=== PATIENT | male | born 1945 | race Caucasian/White ===

== ENCOUNTER 2018-12-17 12:17 | Emergency (ER) | payer MEDICARE, OTHER ==
[~2018-12-17] VITALS: Ht 180.3 cm; Wt 121.6 kg
--- OUTSIDE RECORDS SUMMARY | 2018-12-17 12:19 | XMS REPORT ---
Author Author [facility] Address Unknown Phone Unavailable Care Team Providers Care Web Press Operator Name Role Phone Nick LEVI Unavailable Unavailable Problems This patient has no known problems. Allergies, Adverse Reactions, Alerts This patient has no known allergies or adverse reactions. Medications This patient has no known medications. Results Test Description Test Time Test Comments Text Results Atomic Results Result Comments ANKLE 3+ VIEWS LEFT [place] [address] Patient Name: ABBI MCCURDY MR #: [id number] : 1945 Age/Sex: 71/M Req #: [id number] Adm Physician: Ordered by: AVELINA ZAMORA DIRECTOR EPIDEMIOLOGY Report #: [id number] Location: ER Room/Bed: Procedure: [id number] DX/ANKLE 3+ VIEWS LEFT Exam Date: 08/12/17 Exam Time: 1919 REPORT STATUS: Signed Exam: Left ankle 3 views and foot 3 views History: Pain Comparison: None. Findings: No acute fracture or malalignment. Joint spaces preserved. Soft tissue swelling. Dorsal and plantar calcaneal spurs. Impression: Soft tissue swelling without fracture. Signed by: Dr. Molly James M.D. on 08/12/2017 8:23 PM Dictated By: MOLLY JAMES MD 22 Transcribed By: RONEN on 08/12/172022 COPY TO: AVELINA ZAMORA DIRECTOR EPIDEMIOLOGY FOOT LEFT COMPLETE [place] [address] Patient Name: ABBI MCCURDY MR #: [id number] : 1945 Age/Sex: 71/M Req #: [id number] Adm Physician: Ordered by: AVELINA ZAMOAR DIRECTOR EPIDEMIOLOGY Report #: [id number] Location: ER Room/Bed: Procedure: [id number] DX/FOOT LEFT COMPLETE Exam Date: 08/12/17 Exam Time: 1919 REPORT STATUS: Signed Exam: Left ankle 3 views and foot 3 views History: Pain Comparison: None. Findings: No acute fracture or malalignment. Joint spaces preserved. Soft tissue swelling. Dorsal and plantar calcaneal spurs. Impression: Soft tissue swelling without fracture. Signed by: Dr. Molly James M.D. on 08/12/2017 8:23 PM Dictated By: MOLLY JAMES MD 22 Transcribed By: RONEN on 08/12/172022 COPY TO: AVELINA ZAMORA DIRECTOR EPIDEMIOLOGY KNEE LEFT THREE VIEWS [place] [address] Patient Name: ABBI MCCURDY MR #: [id number] : 1945 Age/Sex: 71/M Req #: [id number] Adm Physician: Ordered by: AVELINA ZAMORA DIRECTOR EPIDEMIOLOGY Report #: [id number] Location: ER Room/Bed: Procedure: [id number] DX/KNEE LEFT THREE VIEWS Exam Date: 08/12/17 Exam Time: 1919 REPORT STATUS: Signed Exam: Left knee 3 views History: Knee pain Comparison: None. Findings: No fracture or malalignment. Moderate tricompartmental degenerative arthrosis. Calcified bodies posteriorly. No abnormal soft tissue calcification or soft tissue defect. Impression: No acute osseous abnormality Signed by: Dr. Molly James M.D. on 08/12/2017 8:24 PM Dictated By: MOLLY JAMES MD 23 Transcribed By: RONEN on 08/12/172023 COPY TO: AVELINA ZAMORA NP
[2018-12-17 13:13] LABS: BASOPHILS # (AUTO) 0.1 (0.0-0.1); BASOPHILS % 0.6 % (0.0-1.0); EOSINOPHILS # (AUTO) 0.1 (0.0-0.4); EOSINOPHILS % 1.2 % (0.0-6.0); HEMATOCRIT 33.1 % (38.2-49.6); LYMPHOCYTES # (AUTO) 0.9 (1.0-3.2); LYMPHOCYTES % 9.8 % (18.0-39.1); MEAN CORPUSCULAR HEMOGLOBIN 25.2 pg (28-32); MEAN CORPUSCULAR HGB CONC 30.2 g/dL (31-35); MEAN CORPUSCULAR VOLUME 83.4 fL (81-99); MONOCYTES % 10.9 % (4.4-11.3); NEUTROPHILS # (AUTO) 6.7 (2.1-6.9); NEUTROPHILS % 73.2 % (38.7-80.0); PLATELET COUNT 278 x10e3/uL (140-360); RED BLOOD COUNT 3.97 x10e6/uL (4.3-5.7); RED CELL DISTRIBUTION WIDTH 18.1 % (11.7-14.4)
[2018-12-17 13:35] LABS: INR 7.77; PARTIAL THROMBOPLASTIN TIME 124.8 seconds (23.8-35.5); PROTHROMBIN TIME 66.3 seconds (11.9-14.5)
[2018-12-17] MEDS ORDERED: PHYTONADIONE 10 MG/ML AMP PO ONE (14:45)
[2018-12-17] MEDS ORDERED: PHYTONADIONE 10MG/ML 1 ML ONE (15:09)
[2018-12-17 15:13] VITALS: BP 111/68
[2018-12-17 20:39] LABS: LYMPHOCYTES % (MANUAL) 17 % (19-48); MONOCYTES % (MANUAL) 14 % (3.4-9.0); NEUTROPHILS % (MANUAL) 68 % (40-74); PLATELET ESTIMATE ADEQUATE; PLATELET MORPHOLOGY COMMENT NORMAL; RBC MORPHOLOGY COMMENT NORMAL; STOMATOCYTES SLIGHT
== END 2018-12-17 15:17 | disposition home or self-care (01) ==
LOC: ER 12:17
DX: D68.9 Coagulation defect, unspecified (principal); I10 Essential (primary) hypertension; E11.9 Type 2 diabetes mellitus without complications; I48.91 Unspecified atrial fibrillation
CPT/HCPCS: 36415; 85025; 85610; 85730; 99283; J3430

== ENCOUNTER 2019-01-04 12:01 | Inpatient (IN) | payer MEDICARE, OTHER ==
[~2019-01-04] VITALS: Ht 180.3 cm; Wt 117.7 kg
--- NOTE | 2019-01-04 14:35 | Diagnostic Imaging Report ---
EXAMINATION: Head CT HISTORY: Weakness, dizziness, difficulty swallowing, evaluate for acute stroke. COMPARISON: None available TECHNIQUE: Multidetector axial images were obtained without contrast from the foramen magnum to the vertex . The images were reconstructed using brain and bone algorithms. Thin section brain images were reformatted into coronal and sagittal planes. Image quality: Motion/streaking artifact limits the evaluation of the skull base and posterior cranial fossa. Dose modulation, iterative reconstruction, and/or weight based adjustment of the mA/kV was utilized to reduce the radiation dose to as low as reasonably achievable. FINDINGS: Parenchyma: 1. No abnormal densities. 2. No mass or hemorrhage. No CT evidence of acute territorial vascular insult. Extra-axial spaces:No abnormal density. No extra-axial fluid collections Brain volume: Moderate generalized brain volume loss. Ventricles: No hydrocephalus or displacement. Arteries: No density suggestive of thrombus. Dural sinuses: No abnormal density. Extra-axial spaces: No abnormal density. Foramen magnum: No mass, Chiari malformation, or basilar invagination. Sella: No obvious mass. Paranasal/mastoid sinuses: Imaged portions unremarkable. Skull/Scalp: No lytic or blastic lesions. No fractures. IMPRESSION: No intracranial abnormality, particularly no hemorrhage or CT evidence of large acute territorial cortical infarct. Signed by: Dr. Rose Caldwell M.D. on 01/04/2019 2:32 PM
--- NOTE | 2019-01-04 14:36 | Diagnostic Imaging Report ---
Examination: Single AP view of the chest. COMPARISON: None. INDICATION: Cough DISCUSSION: Lines/tubes: None. Lungs: The lungs are well inflated and clear. No pneumonia or pulmonary edema. Pleura: No pleural effusion or pneumothorax. Heart and mediastinum: The heart and the mediastinum are unremarkable. Bones and soft tissues: No acute bony abnormalities. IMPRESSION: 1. No acute cardiopulmonary abnormalities. Signed by: Dr. Carlos Colunga M.D. on 01/04/2019 2:33 PM
[2019-01-04 14:51] LABS: BILIRUBIN,URINE NEGATIVE (NEGATIVE); CLARITY,URINE HAZY (CLEAR); COLOR,URINE YELLOW (YELLOW); KETONES,URINE NEGATIVE (NEGATIVE); LEUKOCYTE ESTERASE ,URINE NEGATIVE (NEGATIVE); NITRITE,URINE NEGATIVE (NEGATIVE); PROTEIN,URINE DIPSTICK 2+ (NEGATIVE); URINE UROBILINOGEN 0.2 mg/dL (0.2 - 1)
[2019-01-04 14:54] LABS: EPITHELIAL CELLS,URINE FEW /LPF
[2019-01-04 14:56] LABS: WBC,URINE (MAN) 0-5 /HPF (0-5)
[2019-01-04 14:57] LABS: AMORPHOUS SEDIMENT,URINE MODERATE (FEW); BACTERIA,URINE FEW /HPF; COARSE GRANULAR CASTS,URINE >15 (0); HYALINE CASTS 0-1 (0-1); RBC,URINE 0-5 /HPF (0-5)
[2019-01-04 15:23] LABS: BASOPHILS % 0.5 % (0.0-1.0); EOSINOPHILS # (AUTO) 0.1 (0.0-0.4); EOSINOPHILS % 0.9 % (0.0-6.0); HEMATOCRIT 33.3 % (38.2-49.6); HEMOGLOBIN 9.8 g/dL (14.0-18.0); LYMPHOCYTES # (AUTO) 1.2 (1.0-3.2); MEAN CORPUSCULAR HEMOGLOBIN 25.3 pg (28-32); MEAN CORPUSCULAR HGB CONC 29.4 g/dL (31-35); MONOCYTES # (AUTO) 1.2 (0.2-0.8); MONOCYTES % 13.3 % (4.4-11.3); NEUTROPHILS % 68.2 % (38.7-80.0); PLATELET COUNT 313 x10e3/uL (140-360); RED BLOOD COUNT 3.87 x10e6/uL (4.3-5.7); RED CELL DISTRIBUTION WIDTH 17.4 % (11.7-14.4)
[2019-01-04 15:44] LABS: ALBUMIN 2.8 g/dL (3.5-5.0); ALBUMIN/GLOBULIN RATIO 0.5 (0.8-2.0); ALKALINE PHOSPHATASE 89 IU/L (40-150); ANION GAP 16.8 mmol/L (8-16); BLOOD UREA NITROGEN 24 mg/dL (7-26); BUN/CREATININE RATIO 8 (6-25); CALCIUM 9.6 mg/dL (8.4-10.2); CARBON DIOXIDE 25 mmol/L (22-29); CHLORIDE 97 mmol/L (98-107); CREATINE KINASE 28 IU/L (30-200); EST GLOMERULAR FILTRATION RATE 21 ML/MIN (60-); GLUCOSE 154 mg/dL (74-118); POTASSIUM 3.8 mmol/L (3.5-5.1); SODIUM 135 mmol/L (136-145)
[2019-01-04 15:49] LABS: ALANINE AMINOTRANSFERASE < 6 IU/L (0-55)
[2019-01-04 15:52] LABS: INR 3.68; PROTHROMBIN TIME 37.3 seconds (11.9-14.5)
[2019-01-04 15:53] LABS: PARTIAL THROMBOPLASTIN TIME 71.7 seconds (23.8-35.5)
[2019-01-04] MEDS ORDERED: MORPHINE SULFATE INJ 4 MG/ML INJ 1ML IV PRN (17:45)
[2019-01-04] MEDS ORDERED: ONDANSETRON HCL INJ 2MG/ML 2ML 2 MG/ML VIAL IV PRN (17:45)
[2019-01-04] MEDS ORDERED: MORPHINE SULFATE 2 MG/ML SYR 1ML IV PRN (17:45)
[2019-01-04] MEDS ORDERED: METFORMIN HCL500 MG PO (18:22)
[2019-01-04] MEDS ORDERED: AMIODARONE HCL200 MG PO (18:22)
[2019-01-04] MEDS ORDERED: XARELTO20 MG PO (18:22)
[2019-01-04] MEDS ORDERED: CRESTOR20 MG PO (18:22)
[2019-01-04] MEDS ORDERED: TORSEMIDE5 MG PO (18:22)
[2019-01-04] MEDS ORDERED: LOSARTAN POTASS25 MG PO (18:22)
[2019-01-04] MEDS ORDERED: FAMOTIDINE40 MG PO (18:23)
[2019-01-04] MEDS ORDERED: FLUTICASONE PRO16 GM NS (18:24)
[2019-01-04] MEDS ORDERED: NITROGLYCERIN0.4 MG SL (18:25)
[2019-01-04] MEDS ORDERED: ASPIR-LOW81 MG PO (18:26)
[2019-01-04] MEDS ORDERED: BUSPIRONE HCL5 MG PO (18:28)
[2019-01-04] MEDS: SODIUM CHLORIDE 0.9% 1000ML 1,000 ML IV SCH (18:55)
[2019-01-04 20:55] VITALS: BP 121/64
--- NOTE | 2019-01-04 20:55 | NUR ---
pt transferred to 184 via stretcher. no ss of distress noted. no co pain at time of transfer.
--- NOTE | 2019-01-04 20:55 | NUR ---
patient received to room 284 via stretcher from the er. vss. no c/o pain noted. patient c/o difficulty swallowing solid food. no solid food x 3 week. ivf infusing without difficulty. patient made aware of npo status. patient verbalizes understanding of this. admit assessment/history obtained. noted at the bedside and will stay through the night. patient/ instructed to call for assistance when needed.
[2019-01-04 21:27] LABS: EOSINOPHILS % (MANUAL) 2 % (0-7); LYMPHOCYTES % (MANUAL) 19 % (19-48); METAMYELOCYTES % (MANUAL) 3 % (0-0); MONOCYTES % (MANUAL) 8 % (3.4-9.0); NEUTROPHILS % (MANUAL) 65 % (40-74)
[2019-01-04 21:28] LABS: PLATELET ESTIMATE ADEQUATE; PLATELET MORPHOLOGY COMMENT NORMAL; RBC MORPHOLOGY COMMENT NORMAL
--- NOTE | 2019-01-04 22:30 | NUR ---
blood glucose check 157 at this time.
[2019-01-05] VITALS (8 sets, daily range): BP systolic 92–140; BP diastolic 55–74
[2019-01-05] MEDS: SODIUM CHLORIDE 0.9% 1000ML 1,000 ML IV SCH (04:30)
[2019-01-05 06:09] LABS: BASOPHILS # (AUTO) 0.1 (0.0-0.1); BASOPHILS % 0.7 % (0.0-1.0); EOSINOPHILS # (AUTO) 0.1 (0.0-0.4); EOSINOPHILS % 1.2 % (0.0-6.0); HEMATOCRIT 28.7 % (38.2-49.6); HEMOGLOBIN 8.5 g/dL (14.0-18.0); LYMPHOCYTES # (AUTO) 1.1 (1.0-3.2); LYMPHOCYTES % 15.5 % (18.0-39.1); MEAN CORPUSCULAR HEMOGLOBIN 25.1 pg (28-32); MEAN CORPUSCULAR HGB CONC 29.6 g/dL (31-35); MEAN CORPUSCULAR VOLUME 84.7 fL (81-99); MONOCYTES # (AUTO) 0.9 (0.2-0.8); MONOCYTES % 13.6 % (4.4-11.3); NEUTROPHILS # (AUTO) 4.4 (2.1-6.9); NEUTROPHILS % 64.1 % (38.7-80.0); PLATELET COUNT 270 x10e3/uL (140-360); RED BLOOD COUNT 3.39 x10e6/uL (4.3-5.7); RED CELL DISTRIBUTION WIDTH 17.3 % (11.7-14.4)
[2019-01-05 06:24] LABS: CALCIUM 8.7 mg/dL (8.4-10.2); CREATININE, SERUM 2.81 mg/dL (0.72-1.25)
--- NOTE | 2019-01-05 07:15 | NUR ---
PATIENT IN BED WITH HEAD OF BED ELEVATED WATCHING TV, NO COMPLAIN VOICED. URINAL PROVIDED. BED IN LOWER POSITION, CALL LIGHT AT REACH.
[2019-01-05] MEDS ORDERED: NITROGLYCERIN 0.4 MG SUBL SL PRN (09:30)
[2019-01-05 09:45] LABS: % IRON SATURATION 8 % (15-50); IRON 16 ug/dL (65-175); TOTAL IRON BINDING CAPACITY 192 ug/dL (261-478); TRANSFERRIN 137 mg/dL (174-364)
[2019-01-05] MEDS ORDERED: DIATRIZOATE MEGL/DIATRIZOA SOD 30 ML BTL PO ONE (10:19)
[2019-01-05 10:21] LABS: FOLATE 6.2 ng/mL (7.0-15.4)
--- NOTE | 2019-01-05 11:20 | NUR ---
PATIENT ASSISTED TO THE RESTROOM AND BACK TO RECLINING CHAIR. MD IN TO SEE PATIENT, NEW ORDERS RECEIVED. CALL LIGHT AT REACH.
--- NOTE | 2019-01-05 11:33 | NUR ---
PATIENT OFF UNIT TO RADIOLOGY.
--- NOTE | 2019-01-05 12:00 | NUR ---
PATIENT BACK TO FROM RADIOLOGY. SITTING UP IN CHAIR EATING LUNCH, NO DIFFICULTY SWALLOWING NOTED. CALL LIGHT AT REACH.
--- NOTE | 2019-01-05 12:51 | Diagnostic Imaging Report ---
EXAMINATION: CT of the chest, abdomen and pelvis without contrast. TECHNIQUE: Spiral CT images of the chest, abdomen and pelvis were performed from the lung apices to the lesser trochanters after the oral administration of Gastrografin. No intravenous contrast was administered per referring physician request.. Coronal and sagittal reformatted images were obtained. COMPARISON: Chest radiograph 01/04/2019 CLINICAL HISTORY:Shortness of breath, dysphagia, weight loss DISCUSSION: CHEST: LINES/TUBES: None. LUNGS AND AIRWAYS: Mild upper lobe predominant paraseptal emphysematous changes. 1.1 cm juxtapleural nodule in the medial aspect of the right upper lobe (series 4 image 52). Additional smaller scattered bilateral pulmonary nodules for example a 3 mm nodule in the left upper lobe seen on series 4 image 28, a 2 mm nodule in the right upper lobe seen on series 4 image 32, adjacent 2 mm nodules in the right upper lobe seen on series 4 image 47, 48, 49, and 52, a 4 mm right upper lobe nodule more centrally seen on series 4 image 76, a 3 mm groundglass nodule in the left upper lobe seen on series 4 image 36, 4 mm and 3 mm adjacent groundglass nodules also in the left upper lobe seen on series 4 image 44, 4 mm left upper lobe nodule on series 4 image 55, 2 mm juxtapleural left upper lobe nodule series 4 image 64. No airspace consolidations, bronchiectasis, or gross fibrotic change. PLEURA: The pleural spaces are clear. HEART AND MEDIASTINUM: Visualized portions of the thyroid gland appear normal. Atherosclerotic calcification of the thoracic aorta, great vessel origins, and [place] coronary arteries. No ectasia or aneurysmal dilatation of the thoracic aorta. The pulmonary outflow tract is enlarged, measuring 4.2 cm. No pericardial effusion. LYMPH NODES: No significant mediastinal, hilar or axillary lymphadenopathy is seen. BONES AND SOFT TISSUES: Osseous structures are discussed below. ABDOMEN/PELVIS: DETECTION OF VASCULAR LESIONS AND EVALUATION FOR SOLID ORGAN LESIONS IS MARKEDLY LIMITED IN THE ABSENCE OF INTRAVENOUS CONTRAST. HEPATOBILIARY:No focal hepatic lesion or intrahepatic biliary ductal dilatation. Hyperattenuating material in the gallbladder likely represents vicarious biliary excretion of previously administered intravenous contrast material. No pericholecystic inflammation. SPLEEN: No splenomegaly. PANCREAS: No focal masses or ductal dilatation. ADRENALS: 2.7 cm nodule of mixed attenuation in the left adrenal gland. No right adrenal nodule. KIDNEYS/URETERS: Bilateral nonspecific perinephric fat stranding. 1.5 cm exophytic low-attenuation lesion projecting from the interpolar left kidney, average internal attenuation 0-5 Hounsfield units. Suspected solid mass within the upper pole resulting in nodularity of the external contour best appreciated on coronal imaging. Lesion measures approximately 4.3 cm craniocaudal x 3.9 cm transverse as seen on coronal image 91. No hydronephrosis, calculus, or additional mass lesion. PELVIC ORGANS/BLADDER: The urinary bladder is incompletely distended but otherwise unremarkable. The prostate is enlarged, measuring approximately 5 cm transversely. PERITONEUM/RETROPERITONEUM: No ascites. No pneumoperitoneum. LYMPH NODES: No intra-abdominal,retroperitoneal, pelvic or inguinal lymphadenopathy. VESSELS: Limited evaluation without intravenous contrast. There is atherosclerotic calcification of the abdominal aorta and major branch vessels without aneurysmal dilatation. GI TRACT: The large bowel shows no evidence of distention or wall thickening. There are a few diverticula along the descending and sigmoid colon without evidence of diverticulitis. The appendix is not definitively identified. The stomach is collapsed with prominence of the rugal folds. No small bowel dilatation to suggest obstruction. BONES AND SOFT TISSUES: No osseous destructive lesions. Degenerative changes of the shoulder girdles and hips. Multilevel degenerative disc changes of the spinal column; nonaggressive appearing lucencies in the lateral aspect of the left sixth rib. No focal soft tissue abnormalities. IMPRESSION: Limited evaluation of the absence of intravenous contrast. However, findings are highly concerning for renal cell carcinoma or less likely transitional cell carcinoma of the upper pole of the left kidney, with possible metastatic involvement of the left adrenal gland. CT or MRI of the abdomen with and without contrast (renal mass protocol) would be of benefit for further evaluation if the patient's renal function will allow intravenous contrast administration. 1.2 cm right upper lobe pulmonary nodule is concerning for metastatic disease in the setting of suspected left renal mass. Remaining subcentimeter nodules are indeterminate and should be followed on subsequent cross-sectional imaging examinations. Atherosclerotic vascular disease. Large bowel diverticulosis without diverticulitis. Mild emphysematous changes with enlargement of the pulmonary outflow tract suggestive of pulmonary hypertension. Signed by: Dr. Washington Ramírez M.D. on 01/05/2019 12:47 PM
[2019-01-05 13:56] LABS: ANISOCYTOSIS SLIGHT; EOSINOPHILS % (MANUAL) 2 % (0-7); HYPOCHROMASIA SLIGHT; LYMPHOCYTES % (MANUAL) 16 % (19-48); METAMYELOCYTES % (MANUAL) 4 % (0-0); MONOCYTES % (MANUAL) 9 % (3.4-9.0); MYELOCYTES % (MANUAL) 1 % (0-0); NEUTROPHILS % (MANUAL) 68 % (40-74); POIKILOCYTOSIS SLIGHT; RBC MORPHOLOGY COMMENT NORMAL
[2019-01-05 13:57] LABS: PLATELET ESTIMATE ADEQUATE; PLATELET MORPHOLOGY COMMENT NORMAL
--- NOTE | 2019-01-05 15:51 | NUR ---
CM SPOKE TO PATIENT AT BEDSIDE REGARDING IMM LETTER. IMM LETTER GIVEN WITH EXPLANATION BASED ON ANTICIPATED DISCHARGE DATE. ORIGINAL SIGNED AND PLACED IN CHART; COPY OF ORIGINAL DOCUMENT GIVEN TO PATIENT AT BEDSIDE AND PLACED IN CARE TRANSITION FOLDER. CM CONTACT INFORMATION GIVEN TO PATIENT FOR ANY NEEDS OR CONCERNS. PATIENT WITH NO FURTHER QUESTIONS.
--- NOTE | 2019-01-05 16:04 | NUR ---
PATIENT ASSISTED TO THE RESTROOM AND BACK TO BED. CALL LIGHT AT REACH.
--- NOTE | 2019-01-05 16:41 | NUR ---
Nutrition Screen Note RD Recommendation for Physician: -Consult TRANSITIONAL CARE NURSE for dysphagia -Rec advancing to regular diet as medically appropriate; diet texture per TRANSITIONAL CARE NURSE Plan of Care: RD following, monitoring for tolerance and adequacy Nutrition reason for involvement: Nutrition Risk Trigger MST Primary Diagnose(s): dysphagia, acute renal failure PMH: no H&P in chart Ht: 71in Wt: 252.25lb BMI: 35.2kg/m2 IBW: 172lb RD Assessment: (01/05) Chart reviewed. Labs and meds reviewed. 73yo M, who was admitted for dysphagia and acute renal failure. Visited pt in the room. Pt tolerated full liquid diet for lunch today. No complains of nausea or vomiting. Pt complained of chewing difficulty due to missing teeth; pt also complained of dysphagia for almost a month. 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 Pt also reported ~10lbs weight loss in a month. No physical sign of muscle and fat loss. RD rec to consult TRANSITIONAL CARE NURSE for texture modification. Will continue to monitor and follow. Current Diet: Full liquid Malnutrition Evaluation (01/05) The patient does not meet criteria for a specified degree of malnutrition at this time. Will re-evaluate at follow-up as appropriate. Energy intake: <75% of estimated energy requirements for >1 month Weight loss: 10lbs weight loss in a month, 3.8% of UBW Fat loss: None Muscle loss: None Supporting Evidence: Fluid accumulation: unable to evaluate Functional Status: no changes Diet Education Needs Assessment: Diet education not indicated. Nutrition Care Level: mod Signed: Yuly Toney, MS, RD, LD
[2019-01-05] MEDS: BUSPIRONE HCL 5 MG TAB PO SCH (17:12)
--- NOTE | 2019-01-05 19:20 | NUR ---
PT IS RESTING IN BED WITH FAMILY AT BEDSIDE. RESPIRATION IS EVEN AND UNLABORED, NO DISTRESS NOTED. BED IN THE LOWEST POSITION, LOCKED, AND CALL LIGHT WITHIN REACH. WILL CONTINUE TO MONITOR.
[2019-01-06] VITALS (8 sets, daily range): BP systolic 133–140; BP diastolic 60–86
--- NOTE | 2019-01-06 04:28 | Consultation ---
DATE OF CONSULTATION: 01/05/2019 GI Consult Note CONSULTING PHYSICIAN: Edgardo Acosta MD. REASON FOR CONSULT: Solid food dysphagia for three weeks. HISTORY OF PRESENTING ILLNESS: A 73-year-old male, who is being consulted by GI because he has been experiencing solid food dysphagia for three weeks. Solid food often gets stuck in the lower esophagus. He has had a barium swallow in [facility] ordered by his primary care provider, Dr. Parra. The patient does not remember the report. Currently, he is on liquid diet. Here, he has had a CT scan of the chest, abdomen, and pelvis and there is a concern for left malignant renal mass. The patient denies any lower GI symptoms. REVIEW OF SYSTEMS: Twelve-point system reviewed. Symptomatology is limited as per HPI. PAST MEDICAL HISTORY: Hypertension, anxiety, GERD, hyperlipidemia, and atrial fibrillation on Xarelto. PAST SURGICAL HISTORY: None. FAMILY HISTORY: Noncontributory. SOCIAL HISTORY: . No smoking, alcohol, or any illicit drug use. HOME MEDICATIONS: Amiodarone, aspirin, buspirone, famotidine, fluticasone nasal spray, losartan, metformin, nitroglycerin, rivaroxaban, rosuvastatin, torsemide. INPATIENT MEDICATIONS: Reviewed as per MAR. PHYSICAL EXAMINATION: VITAL SIGNS: Temperature 98.6, pulse 72, respirations 20, blood pressure 123/69, and oxygen saturation 92% on room air. GENERAL: Obese body habitus, not in any acute distress. HEENT: Oral mucosa is moist. Anicteric sclerae. CVS: S1, S2. Irregularly irregular. LUNGS: Bilaterally grossly clear with occasional scattered rhonchi. ABDOMEN: Protuberant, very soft, mild left medial and lower quadrant tenderness on deep palpation without rebound, rigidity, or guarding. Positive bowel sounds. LABORATORY DATA: WBC 6.78, hemoglobin 8.5, hematocrit 28.7, MCV 84.7, and platelet count 270. Sodium 137, potassium 4.0, chloride 104, bicarb 26, BUN 23, creatinine 2.80, and glucose 146. PT 37.3, INR 3.68, PTT 71.7. Urinalysis negative. A CT of the abdomen and pelvis without contrast showed limited evaluation due to absence of IV contrast. There is a concern for left malignant kidney mass with metastasis into the upper right lobe of the lung. IMPRESSION: 1. Solid food dysphagia, barium swallow has been performed in [place] two days ago. 2. 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 3. The patient is also on Xarelto. 4. Coagulopathy with INR above 3. PLAN: Get the barium swallow test results from [place]. Continue clear liquid diet. Further recommendation based upon barium swallow findings. The patient's upper endoscopy at this point of time due to elevated INR and the patient being on Xarelto is on hold. I thank, Dr. Acosta, for allowing me to participate in the care of this patient. Blayne Recio MD SA/HARSH /[id number]
[2019-01-06 06:13] LABS: BASOPHILS % 0.6 % (0.0-1.0); EOSINOPHILS # (AUTO) 0.1 (0.0-0.4); EOSINOPHILS % 1.5 % (0.0-6.0); HEMATOCRIT 28.3 % (38.2-49.6); HEMOGLOBIN 8.6 g/dL (14.0-18.0); LYMPHOCYTES # (AUTO) 0.9 (1.0-3.2); LYMPHOCYTES % 13.1 % (18.0-39.1); MEAN CORPUSCULAR HEMOGLOBIN 25.7 pg (28-32); MEAN CORPUSCULAR HGB CONC 30.4 g/dL (31-35); MEAN CORPUSCULAR VOLUME 84.5 fL (81-99); MONOCYTES # (AUTO) 0.9 (0.2-0.8); MONOCYTES % 13.9 % (4.4-11.3); NEUTROPHILS # (AUTO) 4.3 (2.1-6.9); PLATELET COUNT 269 x10e3/uL (140-360); RED BLOOD COUNT 3.35 x10e6/uL (4.3-5.7); RED CELL DISTRIBUTION WIDTH 17.3 % (11.7-14.4)
[2019-01-06 06:44] LABS: ANION GAP 11.9 mmol/L (8-16); CALCIUM 8.8 mg/dL (8.4-10.2); CREATININE, SERUM 2.47 mg/dL (0.72-1.25); MAGNESIUM 1.5 MG/DL (1.3-2.1); PHOSPHORUS 2.9 MG/DL (2.3-4.7); POTASSIUM 3.9 mmol/L (3.5-5.1)
--- NOTE | 2019-01-06 07:05 | NUR ---
RECEIVED PATIENT RESTING IN BED. NO ACUTE DISTRESS NOTED. IV LINE IS OUT, WILL OBTAIN NEW ACCESS SOON POSSIBLE. CALL LIGHT WITHIN REACH. BED IN THE LOWEST POSITION.
[2019-01-06 08:00] LABS: EOSINOPHILS % (MANUAL) 3 % (0-7); LYMPHOCYTES % (MANUAL) 14 % (19-48); METAMYELOCYTES % (MANUAL) 1 % (0-0); MONOCYTES % (MANUAL) 4 % (3.4-9.0); MYELOCYTES % (MANUAL) 1 % (0-0); NEUTROPHILS % (MANUAL) 74 % (40-74); PLATELET ESTIMATE ADEQUATE; PLATELET MORPHOLOGY COMMENT NORMAL; PROMYELOCYTES % (MANUAL) 2 % (0-0); RBC MORPHOLOGY COMMENT NORMAL
[2019-01-06] MEDS: BUSPIRONE HCL 5 MG TAB PO SCH ×3 (08:47→21:28)
[2019-01-06] MEDS: AMIODARONE HCL 200 MG TAB PO SCH (08:47)
[2019-01-06] MEDS ORDERED: DEXTROSE 50% SYRINGE 50 ML IV PRN (10:00)
[2019-01-06] MEDS: PANTOPRAZOLE 40 MG 10ML VIAL IV SCH (10:00)
[2019-01-06] MEDS: INSULIN LISPRO 100 UNIT/1 ML 3ML VIAL SQ SCH ×3 (11:47→21:28)
[2019-01-06] MEDS ORDERED: ACETAMINOPHEN 325 MG TAB PO PRN (16:30)
--- NOTE | 2019-01-06 19:13 | NUR ---
PT IS RESTING IN THE BED WITH FAMILY AT BEDSIDE. RESPIRATION IS EVEN AND UNLABORED, NO DISTRESS NOTED. BED IN THE LOWEST POSITION, LOCKED, AND CALL LIGHT WITHIN REACH. WILL CONTINUE TO MONITOR.
--- NOTE | 2019-01-06 19:15 | NUR ---
REPORT GIVEN TO ONCOMING NURSE, PATIENT IS RESTING IN RECLINER. NO ACUTE DISTRESS NOTED. CALL LIGHT WITHIN REACH. BED IN THE LOWEST POSITION.
[2019-01-07] VITALS (8 sets, daily range): BP systolic 98–140; BP diastolic 57–78
--- NOTE | 2019-01-07 00:28 | Progress Note ---
DATE: 01/06/2019 SUBJECTIVE: The patient continues to be on full liquid diet. He is not on solid food as he is complaining about food getting stuck into upper throat and upper esophagus. REVIEW OF SYSTEMS: GENERAL: No fever or chills. CVS: No chest pain or palpitation. RESPIRATORY: No cough or expectoration. MEDICATIONS: Reviewed as per DEC. PHYSICAL EXAMINATION: VITAL SIGNS: Temperature 96, pulse 83, respirations 20, blood pressure 133/62, oxygen saturation 92% on room air. GENERAL: Obese body habitus, not in any acute distress. HEENT: Oral mucosa is moist. ABDOMEN: Obese, soft, protuberant belly, nontender. No palpable mass or hernia. Positive bowel sounds. IMPRESSION: 1. Dysphagia, mainly to solid, it could be oropharyngeal versus esophageal dysphagia. 2. Left renal mass. PLAN: The barium swallow report from [place] has not arrived. We will proceed with upper endoscopy tomorrow. Further recommendation based upon endoscopy finding. Blayne Recio MD SA/HARSH /[id number]
--- NOTE | 2019-01-07 06:50 | NUR ---
RECEIVED PATIENT RESTING IN RECLINER, RESPIRATIONS EVEN AND UNLABORED, NO ACUTE DISTRESS NOTED. AT BEDSIDE. CALL LIGHT WITHIN REACH. BED IN THE LOWEST POSITION.
[2019-01-07] MEDS: INSULIN LISPRO 100 UNIT/1 ML 3ML VIAL SQ SCH ×4 (07:30→21:03)
--- NOTE | 2019-01-07 07:32 | Diagnostic Imaging Report ---
Exam: Soft tissue neck CT without IV contrast History: Dysphasia Comparison studies: None Technique: Axial images were obtained from the skull base to the thoracic inlet. Coronal and sagittal images reconstructed from the axial data. Dose modulation, iterative reconstruction, and/or weight based adjustment of the mA/kV was utilized to reduce the radiation dose to as low as reasonably achievable. Radiation dose: Total DLP: 504 mGy*cm. Estimated effective dose: DLP x 0.015 Intravenous contrast: None Findings: Evaluation of the neck is limited due to the absence of intravenous contrast. In spite of this limitation, Upper aerodigestive tract: No gross mass or other abnormalities. Incidental punctate chronic right postinfectious/rheumatoid tonsillith. Soft tissues: Gross abnormalities. Lymph nodes: No enlarged lymph nodes. Vessels: Cannot evaluate luminal patency. Scattered calcified atherosclerosis in the aortic arch, at the origins of the great vessels in the carotid bulbs and in the carotid siphons. Glands (thyroid, parotid and submandibular): Normal in size and symmetric. No masses. Orbits: Bilateral lens replacements for previous cataract surgery. No other abnormalities. Paranasal sinuses: Clear. Temporal bones: No abnormalities. Skull base and facial bones: Intact. Included lung apices: 1.2 cm pleural-based right upper lobe lung nodule Cervical spine: Mild multilevel disc degeneration. No significant canal stenosis. Multilevel uncovertebral facet arthrosis result in multilevel foraminal stenosis (moderate left and mild right at C3-C4, mild bilaterally at C4-C5, mild to moderate bilaterally at C5-C6 and mild bilaterally at C6-C7). IMPRESSION: 1. Exam limited by the absence of IV contrast. In spite of his limitation there are no gross masses or other abnormalities identified in the upper aerodigestive tract. 2. No enlarged cervical lymph nodes. 3. Right upper lobe 1.2 cm pulmonary nodule for which metastasis is in the differential Signed by: Dr. Washington Espinoza M.D. on 01/07/2019 7:29 AM
[2019-01-07] MEDS: PANTOPRAZOLE 40 MG 10ML VIAL IV SCH (08:05)
[2019-01-07 08:06] LABS: BASOPHILS # (AUTO) 0.1 (0.0-0.1); BASOPHILS % 0.7 % (0.0-1.0); EOSINOPHILS # (AUTO) 0.1 (0.0-0.4); EOSINOPHILS % 1.6 % (0.0-6.0); HEMATOCRIT 28.4 % (38.2-49.6); LYMPHOCYTES % 12.6 % (18.0-39.1); MEAN CORPUSCULAR HEMOGLOBIN 25.8 pg (28-32); MEAN CORPUSCULAR HGB CONC 29.9 g/dL (31-35); MEAN CORPUSCULAR VOLUME 86.1 fL (81-99); MONOCYTES # (AUTO) 1.1 (0.2-0.8); MONOCYTES % 14.2 % (4.4-11.3); NEUTROPHILS # (AUTO) 5.1 (2.1-6.9); NEUTROPHILS % 67.1 % (38.7-80.0); PLATELET COUNT 266 x10e3/uL (140-360); RED CELL DISTRIBUTION WIDTH 17.3 % (11.7-14.4)
[2019-01-07 08:07] LABS: HEMOGLOBIN 8.5 g/dL (14.0-18.0)
[2019-01-07 08:20] LABS: INR 1.49; PROTHROMBIN TIME 18.6 seconds (11.9-14.5)
[2019-01-07 08:21] LABS: PARTIAL THROMBOPLASTIN TIME 45.6 seconds (23.8-35.5)
[2019-01-07 08:28] LABS: ANION GAP 12.2 mmol/L (8-16); CREATININE, SERUM 2.44 mg/dL (0.72-1.25); POTASSIUM 4.2 mmol/L (3.5-5.1)
[2019-01-07] MEDS ORDERED: FERROUS SULFATE 300 MG/5 ML LIQD PO SCH (09:00)
[2019-01-07] MEDS: BUSPIRONE HCL 5 MG TAB PO SCH ×2 (09:00→20:58)
--- NOTE | 2019-01-07 09:09 | NUR ---
PAGED DR. WILDE TO NOTIFY HER THAT BIOPSY CANNOT BE DONE TODAY DUE TO PATIENT GETTING SEDATION FOR EGD ALSO.
--- NOTE | 2019-01-07 09:21 | NUR ---
NOTIFIED DR. WILDE OF BIOPSY SCHEDULED FOR THURSDAY, MD AUGUSTINE WITH IT.
--- NOTE | 2019-01-07 09:24 | NUR ---
PATIENT OFF UNIT FOR MRI.
--- NOTE | 2019-01-07 10:20 | Diagnostic Imaging Report ---
History: Dysphasia, acute renal failure Comparison studies: Head CT 3 such . Technique: Sagittal and axial T2 FS, axial DWI, axial T2*GRE, axial T1 FLAIR and axial coronal T2 FLAIR. Intravenous contrast: None Findings: Scalp: Normal in signal. No masses. Bone marrow: Normal in signal intensity. Brain sulci: Jesús prominent. Ventricles: Frontal sulci are moderately prominent. Remaining sulci are mildly prominent. No hydrocephalus. Extra axial spaces: No mass, no fluid collection. Parenchyma: No mass, hemorrhage or acute ischemia. A few scattered T2 FLAIR hyperintense foci in the supratentorial white matter are nonspecific most compatible with chronic microvascular ischemic changes. Small chronic lacunar insult in the left inferior cerebellum. Cerebellum. Suprasellar region: No abnormalities. Craniocervical junction: Patent foramen magnum. No Chiari malformation. Vessels: Normal flow-voids in the arteries and sinuses. Incidental findings: Lens replacements for previous scattered surgery. IMPRESSION: No acute ischemia or other acute intracranial abnormalities. Chronic findings: 1. Mild microvascular ischemic changes. 2. Small chronic left cerebellar lacunar insult. 3. Mild generalized cerebral volume loss with slightly greater volume loss in the frontal lobes. Signed by: Dr. Washington Espinoza M.D. on 01/07/2019 10:17 AM
[2019-01-07 10:56] LABS: BAND NEUTROPHILS % (MANUAL) 3 %; LYMPHOCYTES % (MANUAL) 12 % (19-48); METAMYELOCYTES % (MANUAL) 2 % (0-0); MONOCYTES % (MANUAL) 12 % (3.4-9.0); MYELOCYTES % (MANUAL) 1 % (0-0); NEUTROPHILS % (MANUAL) 70 % (40-74)
[2019-01-07 10:59] LABS: ANISOCYTOSIS SLIGHT; HYPOCHROMASIA SLIGHT; PLATELET ESTIMATE ADEQUATE; PLATELET MORPHOLOGY COMMENT FEW LARGE; RBC MORPHOLOGY COMMENT NORMAL
--- NOTE | 2019-01-07 12:46 | NUR ---
PATIENT OFF UNIT FOR PROCEDURE.
--- NOTE | 2019-01-07 14:25 | NUR ---
RECEIVED REPORT FROM RECOVERY NURSE. PER NURSE PATIENT IS TO HAVE A BEDSIDE SWALLOW AND MODIFIED BARIUM SWALLOW TODAY. CALLED SPEECH THERAPY TO NOTIFY, NO ANSWER, LVM.
--- NOTE | 2019-01-07 14:34 | NUR ---
PATIENT BACK FROM PROCEDURE AT THIS TIME.
--- NOTE | 2019-01-07 14:44 | NUR ---
ST Note: Order for modified barium swallow study noted. Spoke with CAN Hopper. Radiology department unable to complete exam at this time due to other exams already on their schedule. Will complete exam Thursday01/10/19.
[2019-01-07] MEDS: FOLIC ACID/CYANOCOB/PYRIDOXINE TAB PO SCH (15:50)
[2019-01-07] MEDS: AMIODARONE HCL 200 MG TAB PO SCH (15:50)
[2019-01-07] MEDS ORDERED: LIDOCAINE HCL 2% LOCAL INJ 5 ML SDV VIAL INJ ONE (17:49)
[2019-01-07] MEDS ORDERED: PROPOFOL IV EMULSION 10 MG/ML 20 ML VIAL ONE (17:49)
--- NOTE | 2019-01-07 19:00 | NUR ---
Received patient from day nurse, patient is alert, safety and fall precautions maintained as per hospital protocol: bed in lowest position and locked, needed items beside bed, and call tabares placed close to patient. patient is currently stable will continue to monitor.
--- NOTE | 2019-01-07 19:14 | NUR ---
REPORT GIVEN TO ONCOMING NURSE. PATIENT IS RESTING IN RECLINER. NO ACUTE DISTRESS NOTED. FAMILY AT BEDSIDE. CALL LIGHT WITHIN REACH. BED IN THE LOWEST POSITION.
[2019-01-08] VITALS (7 sets, daily range): BP systolic 99–127; BP diastolic 56–75
[2019-01-08] MEDS: IRON SUCROSE 200 MG in SODIUM CHLORIDE 0.9% 100 ML 100 ML IV SCH ×2 (00:07→21:24)
[2019-01-08 06:06] LABS: BASOPHILS # (AUTO) 0.1 (0.0-0.1); BASOPHILS % 0.6 % (0.0-1.0); EOSINOPHILS # (AUTO) 0.1 (0.0-0.4); EOSINOPHILS % 1.5 % (0.0-6.0); HEMATOCRIT 29.1 % (38.2-49.6); HEMOGLOBIN 8.6 g/dL (14.0-18.0); LYMPHOCYTES # (AUTO) 1.3 (1.0-3.2); LYMPHOCYTES % 15.2 % (18.0-39.1); MEAN CORPUSCULAR HEMOGLOBIN 25.4 pg (28-32); MEAN CORPUSCULAR HGB CONC 29.6 g/dL (31-35); MEAN CORPUSCULAR VOLUME 86.1 fL (81-99); MONOCYTES # (AUTO) 1.2 (0.2-0.8); NEUTROPHILS # (AUTO) 5.4 (2.1-6.9); NEUTROPHILS % 64.9 % (38.7-80.0); PLATELET COUNT 275 x10e3/uL (140-360); RED BLOOD COUNT 3.38 x10e6/uL (4.3-5.7); RED CELL DISTRIBUTION WIDTH 17.3 % (11.7-14.4)
[2019-01-08 06:24] LABS: ANION GAP 11.9 mmol/L (8-16); CREATININE, SERUM 2.35 mg/dL (0.72-1.25); POTASSIUM 3.9 mmol/L (3.5-5.1)
--- NOTE | 2019-01-08 07:14 | NUR ---
Patient endorsed to next shift for continuity of care.
[2019-01-08] MEDS: INSULIN LISPRO 100 UNIT/1 ML 3ML VIAL SQ SCH ×4 (07:30→21:00)
[2019-01-08] MEDS: BUSPIRONE HCL 5 MG TAB PO SCH ×2 (09:17→20:50)
[2019-01-08] MEDS: PANTOPRAZOLE 40 MG 10ML VIAL IV SCH (09:17)
[2019-01-08] MEDS: FOLIC ACID/CYANOCOB/PYRIDOXINE TAB PO SCH (09:17)
[2019-01-08] MEDS: AMIODARONE HCL 200 MG TAB PO SCH (09:17)
--- NOTE | 2019-01-08 11:26 | NUR ---
Visit made by the Spiritual Care Department Pastoral Visitor, Kiko Barone. PV provided pastoral presence, prayer, hospitality, and supportive listening. Pastoral Visitor informed pt/family of the scope of [employer] and availability. ERIK HARDING Purchasing Manager/Sales Spiritual Care Department O: [phone] Pager: [phone] ([phone] number calling from)
--- NOTE | 2019-01-08 19:41 | NUR ---
RECEIVED PT SITTING ON THE CHAIR .DENIES PAIN .FAMILY AT THE BEDSIDE .CALL LIGHT WITH IN REACH .CONTINUE TO MONITOR
[2019-01-09] VITALS (8 sets, daily range): BP systolic 102–128; BP diastolic 53–74
--- NOTE | 2019-01-09 06:26 | NUR ---
PT RESTED DURING PERRI NIGHT .DENIES PAIN FAMILY AT THE BEDSIDE .CALL LIGHT WITH IN REACH
--- NOTE | 2019-01-09 07:16 | NUR ---
REPORT GIVEN TO THEGERARD COTTON NURSE
[2019-01-09] MEDS: INSULIN LISPRO 100 UNIT/1 ML 3ML VIAL SQ SCH ×4 (07:30→21:00)
[2019-01-09] MEDS: AMIODARONE HCL 200 MG TAB PO SCH (08:53)
[2019-01-09] MEDS: PANTOPRAZOLE 40 MG 10ML VIAL IV SCH (08:53)
[2019-01-09] MEDS: BUSPIRONE HCL 5 MG TAB PO SCH ×2 (08:53→21:00)
[2019-01-09] MEDS: FOLIC ACID/CYANOCOB/PYRIDOXINE TAB PO SCH (08:53)
--- NOTE | 2019-01-09 19:38 | NUR ---
Received change of shift report from AM nurse. Walking rounds completed.
[2019-01-09] MEDS: IRON SUCROSE 200 MG in SODIUM CHLORIDE 0.9% 100 ML 100 ML IV SCH (21:30)
--- NOTE | 2019-01-09 22:52 | NUR ---
Patient received a shower and linen change. Denies pain or dis comfort at this time. Continue monitor.
[2019-01-10] VITALS (9 sets, daily range): BP systolic 108–147; BP diastolic 55–83
[2019-01-10 05:47] LABS: BASOPHILS # (AUTO) 0.1 (0.0-0.1); BASOPHILS % 0.8 % (0.0-1.0); EOSINOPHILS # (AUTO) 0.2 (0.0-0.4); EOSINOPHILS % 1.9 % (0.0-6.0); HEMATOCRIT 28.1 % (38.2-49.6); HEMOGLOBIN 8.2 g/dL (14.0-18.0); LYMPHOCYTES # (AUTO) 1.4 (1.0-3.2); LYMPHOCYTES % 17.3 % (18.0-39.1); MEAN CORPUSCULAR HEMOGLOBIN 25.3 pg (28-32); MEAN CORPUSCULAR HGB CONC 29.2 g/dL (31-35); MEAN CORPUSCULAR VOLUME 86.7 fL (81-99); MONOCYTES # (AUTO) 1.2 (0.2-0.8); NEUTROPHILS # (AUTO) 4.6 (2.1-6.9); PLATELET COUNT 253 x10e3/uL (140-360); RED BLOOD COUNT 3.24 x10e6/uL (4.3-5.7); RED CELL DISTRIBUTION WIDTH 17.3 % (11.7-14.4)
[2019-01-10 05:55] LABS: INR 1.29; PROTHROMBIN TIME 16.7 seconds (11.9-14.5)
[2019-01-10 05:56] LABS: PARTIAL THROMBOPLASTIN TIME 38.3 seconds (23.8-35.5)
--- NOTE | 2019-01-10 06:42 | NUR ---
Patient prepared for procedure today.
[2019-01-10 07:01] LABS: BAND NEUTROPHILS % (MANUAL) 2 %; EOSINOPHILS % (MANUAL) 1 % (0-7); LYMPHOCYTES % (MANUAL) 22 % (19-48); METAMYELOCYTES % (MANUAL) 1 % (0-0); MONOCYTES % (MANUAL) 10 % (3.4-9.0); MYELOCYTES % (MANUAL) 4 % (0-0); NEUTROPHILS % (MANUAL) 57 % (40-74)
[2019-01-10 07:02] LABS: ANISOCYTOSIS SLIGHT; HYPOCHROMASIA SLIGHT; PLATELET ESTIMATE ADEQUATE; PLATELET MORPHOLOGY COMMENT NORMAL; POIKILOCYTOSIS SLIGHT; RBC MORPHOLOGY COMMENT NORMAL
[2019-01-10] MEDS: INSULIN LISPRO 100 UNIT/1 ML 3ML VIAL SQ SCH ×4 (07:30→21:00)
--- NOTE | 2019-01-10 07:56 | NUR ---
Received patient and alert and responsive, no respiratory distress, VSS, in bed and call light within reach, NPO at the moment as will have MBS today and biopsy, will monitor
[2019-01-10 08:14] LABS: ANION GAP 11.2 mmol/L (8-16); CALCIUM 8.9 mg/dL (8.4-10.2); CREATININE, SERUM 2.08 mg/dL (0.72-1.25); POTASSIUM 4.2 mmol/L (3.5-5.1)
[2019-01-10] MEDS: PANTOPRAZOLE 40 MG 10ML VIAL IV SCH (08:27)
[2019-01-10] MEDS: BUSPIRONE HCL 5 MG TAB PO SCH ×2 (08:27→21:02)
[2019-01-10] MEDS: FOLIC ACID/CYANOCOB/PYRIDOXINE TAB PO SCH (08:27)
[2019-01-10] MEDS: AMIODARONE HCL 200 MG TAB PO SCH (08:27)
[2019-01-10] MEDS ORDERED: FENTANYL CITRATE/PF 100MCG/2 ML INJ ONE (09:28)
[2019-01-10] MEDS ORDERED: GELATIN SPONGE 12-7MM ONE ×2 (09:58→11:03)
[2019-01-10] MEDS ORDERED: LIDOCAINE HCL 1% LOCAL INJ 20 ML VIAL ONE (10:46)
--- NOTE | 2019-01-10 11:53 | NUR ---
ST NOTE: Pt had biopsy and has been sedated, needs 4 hour recovery. Spoke with radiology, will complete MBS on 01/11/19, will handoff to RNS[facility].
--- NOTE | 2019-01-10 12:08 | NUR ---
Received patient from IR s/p biopsy to kidney mass through [facility] and denies any pains at this time. Patient will be on bed rest and VS [id number]. Appears stable, no resp distress and will monitor
--- NOTE | 2019-01-10 14:24 | NUR ---
Patient appears stable, VS127/62, P84, [id number]-02% on 2L NC, T-98.2, no resp distress, wet productive 'smokers cough' noted, denies any pleuritic chest pain, will monitor.
--- NOTE | 2019-01-10 17:58 | NUR ---
Follow-up Note RD Recommendation for Physician: - Rec changing diet to ADA 2000 as medically appropriate - APPLIED RESEARCHER following; diet texture per APPLIED RESEARCHER Plan of Care: RD following, monitoring for tolerance and adequacy Nutrition reason for involvement: Follow up Primary Diagnose(s): dysphagia, acute renal failure PMH: no H&P in chart Ht: 71in Wt: 252.25lb BMI: 35.2kg/m2 IBW: 172lb RD Assessment: (01/10) Pt was discussed during AM rounds. Per RN, MBS was scheduled for tomorrow. Dr. Mccloud has ordered GI soft diet for lunch today. Changed diet to ADA 2000 due to hx of DM. Visited pt in the room. Pt only ate some of the meat from lunch tray today. Pt stated "this is not what I ordered." Obtained meal order for dinner and breakfast. Pt denied any nausea or vomiting. Pt denied any chewing difficulty. MBS pending tomorrow. Will continue to monitor and follow. (01/05) Chart reviewed. Labs and meds reviewed. 73yo M, who was admitted for dysphagia and acute renal failure. Visited pt in the room. Pt tolerated full liquid diet for lunch today. No complains of nausea or vomiting. Pt complained of chewing difficulty due to missing teeth; pt also complained of dysphagia for almost a month. Pt was unable to hold any solid foods down [employer]. Pt also reported ~10lbs weight loss in a month. No physical sign of muscle and fat loss. RD rec to consult APPLIED RESEARCHER for texture modification. Will continue to monitor and follow. Current Diet: GI soft diet Malnutrition Evaluation (01/05) The patient does not meet criteria for a specified degree of malnutrition at this time. Will re-evaluate at follow-up as appropriate. Energy intake: <75% of estimated energy requirements for >1 month Weight loss: 10lbs weight loss in a month, 3.8% of UBW Fat loss: None Muscle loss: None Supporting Evidence: Fluid accumulation: unable to evaluate Functional Status: no changes Diet Education Needs Assessment: Diet education not indicated. Nutrition Care Level: mod Signed: Yuly Toney, MS, RD, LD
[2019-01-11] VITALS: BP 108/56
--- NOTE | 2019-01-11 01:25 | Progress Note ---
DATE: 01/10/2019 SUBJECTIVE: The patient reports no trouble swallowing. He has been on modified oral diet. He is swallowing solid food without any trouble. Regular BM. REVIEW OF SYSTEMS: GENERAL: No fever or chills. CVS: No chest pain or palpitation. RESPIRATORY: No cough or expectoration. MEDICATIONS: Reviewed. PHYSICAL EXAMINATION: VITAL SIGNS: Temperature 99, pulse ranging from 76-100, respirations 18-19, blood pressure 147/70, and oxygen saturation 93% on room air. GENERAL: Not in any acute distress. Obese body habitus. HEENT: Oral mucosa is moist. ABDOMEN: Protuberant belly, soft, nondistended, and nontender. No mass or hernia. Positive bowel sounds. LABORATORY DATA: WBC 7.88, hemoglobin 8.2, hematocrit 28.1, and platelet count 253. Sodium 139, potassium 4.2, chloride 107, bicarb 25, BUN 16, creatinine 2.08, and glucose 132. PT 16.7 and INR 1.29. Stool occult blood negative. IMPRESSION: 1. Dysphagia, mainly to solids. This has also resolved. Status post upper endoscopy that revealed no obstructive cause in the esophagus. Showed some gastritis. Gastric biopsy result is pending. 2. Left renal mass. 3. 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 PLAN: From GI standpoint, the patient can be continued on current oral diet. We will follow up with stomach biopsy results. The patient is on morphine. Therefore, he should be put on daily standing bowel regimen. Blayne Recio MD SA/HARSH /[id number]
[2019-01-11 04:00] VITALS: BP 126/60
--- NOTE | 2019-01-11 07:10 | NUR ---
pt asleep resp even and unlabored at this time no distress noted, pt able to make need known, pt has family member at bedside, call light in reach.
[2019-01-11 07:30] VITALS: BP 120/63
[2019-01-11] MEDS: INSULIN LISPRO 100 UNIT/1 ML 3ML VIAL SQ SCH ×2 (07:30→11:30)
[2019-01-11 08:10] VITALS: BP 120/63
[2019-01-11] MEDS: PANTOPRAZOLE 40 MG 10ML VIAL IV SCH (08:39)
[2019-01-11] MEDS: FOLIC ACID/CYANOCOB/PYRIDOXINE TAB PO SCH (08:39)
[2019-01-11] MEDS: AMIODARONE HCL 200 MG TAB PO SCH (08:39)
[2019-01-11] MEDS: BUSPIRONE HCL 5 MG TAB PO SCH (08:39)
[2019-01-11] MEDS ORDERED: POLYETHYLENE GLYCOL 3350 17 GM PACK PO SCH (09:00)
--- NOTE | 2019-01-11 10:11 | NUR ---
CASE MANAGEMENT INITIAL ASSESSMENT Breakdown Man to bedside to discuss plan of care with patient/family. CM/SW role and care transitions discussed. Anticipated discharge plan discussed along with duration of care. CM/SW discussed patients right to make decisions in care. CM/SW work hours given. Patient lives: [facility]T ON 2ND FLOOR. ELEVATOR IN BL. Admit/Transfer: ER -Hospital/ER visits since last admit: NONE POA/Emergency contact: DARNELL MCCURDY / @ - [phone] Current/Previous Home Health: NONE PCP/Follow-up Care: DR. SCHMITT OR DR. GALEANA. PT ALREADY HAS A F/U APPT W DR. SCHMITT, BUT DOES NOT REMEMBER THE DATE. PT'S STATES SHE WILL CALL THE OFFICE AT HOME. 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 Areas of Concerns: MAY NEED WC IN THE FUTURE. PT WILL DISCUSS IF APPROPRIATE AT F/U APPT. Referral Needs: NONE Education Needs: NONE IMM/GUERRA given and signed (if applicable): COMPLETED 01/10/2019 Goal for discharge: RETURN HOME SAFELY CM/SW left business card at the bedside with contact information. Name and number was also written on the patients whiteboard. Patient verbalized understanding of discussion. CM will follow-up with ongoing discharge and transition of care needs.
--- NOTE | 2019-01-11 10:16 | NUR ---
PT HAS BARIUM SWALLOW AT 11AM. DTR WILL P/U AFTER SHE GETS OFF WORK AT 3PM.
[2019-01-11] MEDS ORDERED: ONDANSETRON HCL 4 MG ORAL DISINTEGRATING TAB PO PRN (10:30)
[2019-01-11 12:24] VITALS: BP 95/51
--- NOTE | 2019-01-11 13:24 | NUR ---
pt discharged home and asked to follow up with his PCP, pt iv site removed no swelling no redness to site.
--- NOTE | 2019-01-11 15:06 | NUR ---
ST NOTE: Spoke to pt at 1030 about scheduling MBS at 1115, pt initially did not want to complete MBS, discussed MBS procedure with pt and he reluctantly agreed to complete MBS. Pt MBS delayed from 1115 to 1500 due to multiple STAT Radiology orders, pt stated his ride was arriving at 1500 and he did not wish to complete MBS.
[2019-01-11] MEDS ORDERED: SENNA-S TABLET PO SCH (21:00)
== END 2019-01-11 15:39 | disposition home or self-care (01) | DRG 687 ==
LOC: ER 12:01 → ERHOLD 17:34 → MED/SURG3 20:55
PROVIDERS: ADMIT Internal Medicine; ATTEND Internal Medicine
PROC: 0DB68ZX Excision of Stomach, Via Natural or Artificial Opening Endoscopic, Diagnostic (ICD-10-PCS; 2019-01-07)
PROC: 0DB58ZX Excision of Esophagus, Via Natural or Artificial Opening Endoscopic, Diagnostic (ICD-10-PCS; principal; 2019-01-07 13:30)
PROC: 0GB23ZX Excision of Left Adrenal Gland, Percutaneous Approach, Diagnostic (ICD-10-PCS; 2019-01-10)
PROC: 0TB13ZX Excision of Left Kidney, Percutaneous Approach, Diagnostic (ICD-10-PCS; 2019-01-10)
DX: C64.2 Malignant neoplasm of left kidney, except renal pelvis (principal); D68.9 Coagulation defect, unspecified; C78.02 Secondary malignant neoplasm of left lung; R13.10 Dysphagia, unspecified; E66.9 Obesity, unspecified; Z68.35 Body mass index [BMI] 35.0-35.9, adult; Z79.01 Long term (current) use of anticoagulants; K29.70 Gastritis, unspecified, without bleeding; K44.9 Diaphragmatic hernia without obstruction or gangrene; I48.0 Paroxysmal atrial fibrillation; D50.9 Iron deficiency anemia, unspecified; D63.8 Anemia in other chronic diseases classified elsewhere; I25.10 Atherosclerotic heart disease of native coronary artery without angina pectoris; E78.5 Hyperlipidemia, unspecified; F17.210 Nicotine dependence, cigarettes, uncomplicated; D51.9 Vitamin B12 deficiency anemia, unspecified; I12.9 Hypertensive chronic kidney disease with stage 1 through stage 4 chronic kidney disease, or unspecified chronic kidney disease; N18.3 Chronic kidney disease, stage 3 (moderate)
CPT/HCPCS: 10005; 36415; 43239; 50200; 70450; 70490; 70551; 71045; 71250; 74150; 74176; 74470; 80048; 80053; 81001; 82270; 82550; 82553; 82607; 82728; 82746; 82948; 83540; 83735; 84100; 84466; 84484; 85025; 85610; 85730; 88112; 88172; 88173; 88305; 88312; 88342; 93005; 99152; 99153; 99284; J1756; J2001; J7030